=== PATIENT | female | born 1985 | race African-American/Black ===

== ENCOUNTER 2020-08-07 12:15 | Emergency (ER) | payer OTHER ==
[~2020-08-07] VITALS: Ht 170.2 cm; Wt 86.0 kg
[~2020-08-07 12:15] MED LIST: INSU3INS7; LISI-651
[2020-08-07] MEDS ORDERED: NITROGLYCERIN 0.4MG TABLET SL SL PRN (12:30)
[2020-08-07] MEDS ORDERED: ASPIRIN 81MG TABLET PO ONE (12:30)
[2020-08-07 13:11] LABS: BASOPHILS % 0.3 % (0.0-2.0); EOSINOPHILS % 1.3 % (0.0-5.0); HEMATOCRIT. 40.6 % (36.0-48.0); HEMOGLOBIN. 13.6 g/dL (12.0-16.0); LYMPHOCYTES % 33.4 % (20.0-50.0); MEAN CORPUSCULAR HEMOGLOBIN 26.8 pg (28.0-32.0); MEAN CORPUSCULAR VOLUME 79.9 fL (81.0-99.0); MONOCYTES % 5.5 % (2.0-8.0); NEUTROPHILS % 59.5 % (40.0-76.0); PLATELET 263 x1000/uL (130-400); RED BLOOD CELL COUNT 5.08 mill/uL (4.2-5.4); RED CELL DISTRIBUTION WIDTH 13.3 % (11.6-14.6)
[2020-08-07 13:17] LABS: CHLORIDE 103 mEq/L (98-107)
[2020-08-07 13:21] LABS: HCG SCREEN NEGATIVE
[2020-08-07 13:22] LABS: D-DIMER 0.35 mg/L FEU (<0.50); PARTIAL THROMBOPLASTIN TIME 23.3 sec (23.4-31.0); PROTHROMBIN TIME 10.5 sec (9.6-11.0)
[2020-08-07] MEDS ORDERED: KETOROLAC 30MG/ML VIAL IV STA (15:53)
[2020-08-07 16:00] VITALS: BP 129/78
== END 2020-08-07 16:25 | disposition left against medical advice (07) ==
LOC: ER 12:15 → CANBEDREQ 16:12 → ER 16:25
DX: R07.9 Chest pain, unspecified (principal); I25.10 Atherosclerotic heart disease of native coronary artery without angina pectoris; E11.9 Type 2 diabetes mellitus without complications; I10 Essential (primary) hypertension; I25.2 Old myocardial infarction; Z59.0 Homelessness; Z88.6 Allergy status to analgesic agent
CPT/HCPCS: 36415; 71045; 80053; 83880; 84484; 84703; 85025; 85379; 85610; 85730; 93005; 96374; 99285; J1885; Z7610